=== PATIENT | female | born 1995 ===

== ENCOUNTER 2021-09-18 09:40 | Outpatient (CLI) | payer OTHER | END 2021-09-18 10:40 | disposition home or self-care (01) | LOC: PRENATAL 09:40 | PROVIDERS: ATTEND Obstetrics & Gynecology Maternal & Fetal Medicine | DX: O35.0XX0 Maternal care for (suspected) central nervous system malformation in fetus, not applicable or unspecified (principal); Z3A.20 20 weeks gestation of pregnancy; O35.3XX0 Maternal care for (suspected) damage to fetus from viral disease in mother, not applicable or unspecified; O28.1 Abnormal biochemical finding on antenatal screening of mother ==

== ENCOUNTER 2021-11-26 13:16 | Outpatient (CLI) | payer OTHER | END 2021-11-26 15:13 | disposition home or self-care (01) | LOC: PRENATAL 13:16 | PROVIDERS: ATTEND Obstetrics & Gynecology Maternal & Fetal Medicine | DX: O26.849 Uterine size-date discrepancy, unspecified trimester (principal); O35.0XX0 Maternal care for (suspected) central nervous system malformation in fetus, not applicable or unspecified; O28.1 Abnormal biochemical finding on antenatal screening of mother; O26.879 Cervical shortening, unspecified trimester ==